=== PATIENT | male | born 1985 | race Caucasian/White ===

== ENCOUNTER 2016-11-03 18:46 | Emergency (ER) | payer SELFPAY ==
[~2016-11-03] VITALS: Ht 180.3 cm; Wt 87.7 kg
[2016-11-03] MEDS ORDERED: IBUPROFEN 800 MG TABLET PO ONE (21:00)
[2016-11-03] MEDS ORDERED: ACETAMINOPHEN 500 MG TABLET PO ONE (21:00)
[2016-11-03 21:07] VITALS: BP 124/79
== END 2016-11-03 21:07 | disposition home or self-care (01) ==
LOC: EMS 18:50
DX: R07.89 Other chest pain (principal); V43.52XA Car driver injured in collision with other type car in traffic accident, initial encounter; Y93.89 Activity, other specified; Y92.89 Other specified places as the place of occurrence of the external cause; Y99.8 Other external cause status
CPT/HCPCS: 71101; 99284